=== PATIENT | female | born 1970 | race African-American/Black ===

== ENCOUNTER 2020-11-03 14:21 | Inpatient (IN) | payer MEDICAID ==
[~2020-11-03] VITALS: Ht 177.8 cm; Wt 196.0 kg
[~2020-11-03 14:21] MED LIST: ACET-3161 PO; FERR-63 PO; LABE300T3 PO; MULT-1116 PO
[2020-11-03] MEDS ORDERED: MORPHINE SULFATE 4 MG/ML CPJ (NOT FOR IM USE) IV STA ×2 (14:52→18:15)
[2020-11-03] MEDS ORDERED: ONDANSETRON HCL 4MG/2ML INJ IV STA ×2 (14:52→18:15)
[2020-11-03] MEDS ORDERED: SODIUM CHLORIDE 0.9% 1,000 ML IV ONE (15:00)
[2020-11-03 15:20] LABS: HEMATOCRIT. 37.1 % (36.0-48.0); HEMOGLOBIN. 12.2 g/dL (12.0-16.0); MEAN CORPUSCULAR HEMOGLOBIN 27.8 pg (28.0-32.0); MEAN CORPUSCULAR VOLUME 84.4 fL (81.0-99.0); MEAN PLATELET VOLUME 8.2 fl (7.4-10.4); PLATELET 399 x1000/uL (130-400); RED CELL DISTRIBUTION WIDTH 15.4 % (11.6-14.6)
[2020-11-03 15:27] LABS: CHLORIDE 106 mEq/L (98-107)
[2020-11-03] MEDS ORDERED: CLONIDINE 0.2MG TABLET PO ONE (15:30)
[2020-11-03 15:32] LABS: HCG SCREEN NEGATIVE
[2020-11-03] MEDS ORDERED: SODIUM CHLORIDE 0.9% 1000ML BAG (SEPSIS BOLUS) IV ONE (17:15)
[2020-11-03] MEDS ORDERED: VANCOMYCIN 1 G PREMIX 200 ML IV SCH (17:15)
[2020-11-03] MEDS ORDERED: PIPERACILLIN/TAZ 3.375G PREMIX 50 ML IV ONE (17:15)
[2020-11-03 17:17] LABS: PLATELET ESTIMATE NORMAL
[2020-11-03] MEDS ORDERED: HYDRALAZINE 20MG/ML VIAL IV ONE (18:15)
[2020-11-03] MEDS ORDERED: HALOPERIDOL LACTATE 5MG/ML VIAL IM ONE (21:15)
[2020-11-03] MEDS ORDERED: NITROGLYCERIN 50MG PREMIX 250 ML IV ONE (21:15)
[2020-11-03] MEDS ORDERED: MIDAZOLAM HCL 2 MG/2 ML VIAL IV ONE (21:15)
[2020-11-03] MEDS ORDERED: ACETAMINOPHEN 325MG TABLET PO ONE (21:30)
[2020-11-04 00:40] VITALS: BP 121/79
[2020-11-04 00:41] VITALS: BP 121/79
[2020-11-04] MEDS: SODIUM CHLORIDE 0.9% 1,000 ML IV SCH ×2 (01:32→11:58)
[2020-11-04] MEDS: KETOROLAC 30MG/ML VIAL IV PRN ×4 (01:32→23:05)
[2020-11-04] MEDS ORDERED: CEFTRIAXONE 1 G PREMIX 50 ML IV SCH (02:00)
[2020-11-04] MEDS: CEFTRIAXONE 1,000 MG in DEXTROSE 5% WATER 50 ML IV SCH (02:30)
[2020-11-04] MEDS: METRONIDAZOLE 500 MG PREMIX 100 ML IV SCH ×3 (03:28→21:16)
[2020-11-04 06:31] LABS: HEMATOCRIT. 33.1 % (36.0-48.0); HEMOGLOBIN. 10.7 g/dL (12.0-16.0); MEAN CORPUSCULAR HEMOGLOBIN 27.5 pg (28.0-32.0); MEAN CORPUSCULAR VOLUME 85.5 fL (81.0-99.0); MEAN PLATELET VOLUME 8.5 fl (7.4-10.4); PLATELET 361 x1000/uL (130-400); RED BLOOD CELL COUNT 3.88 mill/uL (4.2-5.4); RED CELL DISTRIBUTION WIDTH 15.3 % (11.6-14.6)
[2020-11-04 08:00] VITALS: BP 131/80
[2020-11-04] MEDS: ENOXAPARIN 40MG/0.4ML SYR SUBCUT SCH ×2 (08:50→21:16)
[2020-11-04] MEDS: ONDANSETRON HCL 4MG/2ML INJ IV PRN ×2 (10:43→23:05)
[2020-11-04 12:00] VITALS: BP 126/73
[2020-11-04] MEDS ORDERED: NALOXONE HCL 0.4MG/ML VIAL IV PRN (12:15)
[2020-11-04 13:43] LABS: PLATELET ESTIMATE NORMAL
[2020-11-04 16:00] VITALS: BP 134/83
[2020-11-04 20:00] VITALS: BP 121/82
[2020-11-05] VITALS: BP 145/82
[2020-11-05] MEDS: MORPHINE SULFATE 4 MG/ML CPJ (NOT FOR IM USE) IV PRN ×3 (03:29→21:03)
[2020-11-05] MEDS: SODIUM CHLORIDE 0.9% 1,000 ML IV SCH ×3 (03:35→17:12)
[2020-11-05 04:05] LABS: CLARITY URINE CLOUDY (CLEAR); COLOR URINE ORANGE (YELLOW); KETONES URINE 3+ (NEGATIVE); LEUKOCYTE ESTERASE URINE 1+ (NEGATIVE); NITRITE URINE POSITIVE (NEGATIVE); OCCULT BLOOD URINE NEGATIVE (NEGATIVE); PH URINE 5.5 (4.5-8.0); PROTEIN URINE 2+ (NEGATIVE); SPECIFIC GRAVITY URINE 1.036 (1.005-1.030)
[2020-11-05 05:02] VITALS: BP 180/103
[2020-11-05] MEDS: HYDRALAZINE 20MG/ML VIAL IV PRN ×2 (05:24→12:51)
[2020-11-05] MEDS: METRONIDAZOLE 500 MG PREMIX 100 ML IV SCH ×3 (05:25→20:47)
[2020-11-05 08:00] VITALS: BP 161/89
[2020-11-05] MEDS: CEFTRIAXONE 1,000 MG in DEXTROSE 5% WATER 50 ML IV SCH (08:56)
[2020-11-05] MEDS: ENOXAPARIN 40MG/0.4ML SYR SUBCUT SCH ×2 (08:56→20:47)
[2020-11-05 10:44] LABS: HEMATOCRIT. 33.1 % (36.0-48.0); HEMOGLOBIN. 10.7 g/dL (12.0-16.0); MEAN CORPUSCULAR HEMOGLOBIN 27.6 pg (28.0-32.0); MEAN CORPUSCULAR VOLUME 85.2 fL (81.0-99.0); MEAN PLATELET VOLUME 8.3 fl (7.4-10.4); PLATELET 359 x1000/uL (130-400); RED BLOOD CELL COUNT 3.89 mill/uL (4.2-5.4); RED CELL DISTRIBUTION WIDTH 15.8 % (11.6-14.6)
[2020-11-05 12:21] LABS: CHLORIDE 108 mEq/L (98-107)
[2020-11-05 12:45] VITALS: BP 183/107
[2020-11-05] MEDS: PANTOPRAZOLE SODIUM 40 MG/VIAL IV SCH (15:04)
[2020-11-05 16:00] VITALS: BP 154/87
[2020-11-05 20:00] VITALS: BP 173/87
[2020-11-06] VITALS: BP 191/111
[2020-11-06] MEDS: HYDRALAZINE 20MG/ML VIAL IV PRN ×3 (00:43→19:44)
[2020-11-06 04:00] VITALS: BP 147/85
[2020-11-06] MEDS: METRONIDAZOLE 500 MG PREMIX 100 ML IV SCH ×3 (05:00→21:04)
[2020-11-06] MEDS: SODIUM CHLORIDE 0.9% 1,000 ML IV SCH ×2 (05:00→13:09)
[2020-11-06 06:42] LABS: HEMATOCRIT. 34.8 % (36.0-48.0); HEMOGLOBIN. 11.3 g/dL (12.0-16.0); MEAN CORPUSCULAR HEMOGLOBIN 27.8 pg (28.0-32.0); MEAN CORPUSCULAR VOLUME 85.7 fL (81.0-99.0); MEAN PLATELET VOLUME 8.8 fl (7.4-10.4); PLATELET 374 x1000/uL (130-400); RED BLOOD CELL COUNT 4.07 mill/uL (4.2-5.4); RED CELL DISTRIBUTION WIDTH 16.2 % (11.6-14.6)
[2020-11-06 07:59] LABS: CHLORIDE 107 mEq/L (98-107)
[2020-11-06 08:00] VITALS: BP 164/90
[2020-11-06] MEDS: PANTOPRAZOLE SODIUM 40 MG/VIAL IV SCH (08:37)
[2020-11-06] MEDS: ENOXAPARIN 40MG/0.4ML SYR SUBCUT SCH ×2 (08:38→19:44)
[2020-11-06] MEDS: CEFTRIAXONE 1,000 MG in DEXTROSE 5% WATER 50 ML IV SCH (08:39)
[2020-11-06 12:00] VITALS: BP 171/90
[2020-11-06] MEDS ORDERED: POTASSIUM CHLORIDE INJ 40 MEQ in DEXT 5% WATER 250 ML IV NR (13:00)
[2020-11-06 16:00] VITALS: BP 149/90
[2020-11-06 17:50] LABS: PLATELET ESTIMATE NORMAL
[2020-11-06 20:00] VITALS: BP 201/119
[2020-11-06 21:55] LABS: PLATELET ESTIMATE NORMAL
[2020-11-07] VITALS: BP 199/109
[2020-11-07] MEDS: SODIUM CHLORIDE 0.9% 1,000 ML IV SCH ×3 (01:49→20:56)
[2020-11-07] MEDS: HYDRALAZINE 20MG/ML VIAL IV PRN (01:49)
[2020-11-07 04:00] VITALS: BP 199/114
[2020-11-07] MEDS: METRONIDAZOLE 500 MG PREMIX 100 ML IV SCH ×3 (05:06→21:59)
[2020-11-07] MEDS ORDERED: ENALAPRIL 2.5MG/2ML VIAL 2ML IV SCH ×2 (06:15→12:00)
[2020-11-07 06:23] LABS: CHLORIDE 108 mEq/L (98-107)
[2020-11-07 06:46] LABS: HEMATOCRIT. 34.3 % (36.0-48.0); HEMOGLOBIN. 11.2 g/dL (12.0-16.0); MEAN CORPUSCULAR HEMOGLOBIN 27.5 pg (28.0-32.0); MEAN CORPUSCULAR VOLUME 84.3 fL (81.0-99.0); MEAN PLATELET VOLUME 8.5 fl (7.4-10.4); PLATELET 406 x1000/uL (130-400); RED BLOOD CELL COUNT 4.07 mill/uL (4.2-5.4); RED CELL DISTRIBUTION WIDTH 16.3 % (11.6-14.6)
[2020-11-07] MEDS ORDERED: ENALAPRIL 1.25MG/ML VIAL 1ML IV SCH (07:00)
[2020-11-07 08:00] VITALS: BP 168/106
[2020-11-07] MEDS: CEFTRIAXONE 1,000 MG in DEXTROSE 5% WATER 50 ML IV SCH (08:49)
[2020-11-07] MEDS: ENOXAPARIN 40MG/0.4ML SYR SUBCUT SCH ×2 (08:49→20:56)
[2020-11-07] MEDS: PANTOPRAZOLE SODIUM 40 MG/VIAL IV SCH (08:49)
[2020-11-07] MEDS ORDERED: ENALAPRIL 1.25MG/ML VIAL 1ML IV PRN (11:45)
[2020-11-07 12:00] VITALS: BP 160/92
[2020-11-07] MEDS ORDERED: POTASSIUM CHLORIDE INJ 40 MEQ in DEXT 5% WATER 250 ML IV NR (13:00)
[2020-11-07 13:43] LABS: PLATELET ESTIMATE SLIGHTLY INCREASED
[2020-11-07 16:00] VITALS: BP 197/109
[2020-11-07 20:00] VITALS: BP 191/100
[2020-11-08] VITALS (7 sets, daily range): BP systolic 133–190; BP diastolic 81–110
[2020-11-08] MEDS: SODIUM CHLORIDE 0.9% 1,000 ML IV SCH ×2 (05:25→20:00)
[2020-11-08] MEDS: METRONIDAZOLE 500 MG PREMIX 100 ML IV SCH ×4 (05:25→22:11)
[2020-11-08] MEDS: ONDANSETRON HCL 4MG/2ML INJ IV PRN ×3 (05:38→22:15)
[2020-11-08 09:38] LABS: HEMATOCRIT. 33.8 % (36.0-48.0); HEMOGLOBIN. 11.1 g/dL (12.0-16.0); MEAN CORPUSCULAR HEMOGLOBIN 27.6 pg (28.0-32.0); MEAN CORPUSCULAR VOLUME 84.5 fL (81.0-99.0); MEAN PLATELET VOLUME 8.3 fl (7.4-10.4); PLATELET 386 x1000/uL (130-400); RED BLOOD CELL COUNT 4.01 mill/uL (4.2-5.4); RED CELL DISTRIBUTION WIDTH 16.2 % (11.6-14.6)
[2020-11-08 09:47] LABS: CHLORIDE 108 mEq/L (98-107)
[2020-11-08] MEDS: CEFTRIAXONE 1,000 MG in DEXTROSE 5% WATER 50 ML IV SCH (10:11)
[2020-11-08] MEDS: ENOXAPARIN 40MG/0.4ML SYR SUBCUT SCH ×2 (10:11→22:13)
[2020-11-08] MEDS: FAMOTIDINE 20MG/2ML VIAL IV SCH ×2 (10:11→22:11)
[2020-11-08] MEDS: HYDRALAZINE 20MG/ML VIAL IV PRN ×2 (13:08→23:24)
[2020-11-08] MEDS ORDERED: TRAMADOL 50MG TABLET PO PRN (14:00)
[2020-11-08] MEDS ORDERED: ACETAMINOPHEN 325MG TABLET PO PRN (14:00)
[2020-11-08] MEDS ORDERED: POTASSIUM CHLORIDE 20MEQ TABLET SR PO NR (14:00)
[2020-11-08 16:44] LABS: PLATELET ESTIMATE NORMAL
[2020-11-08] MEDS: AMLODIPINE 5MG TABLET PO SCH (17:46)
[2020-11-08] MEDS ORDERED: LOSA1TAB34 PO (18:46)
[2020-11-08] MEDS: CLONIDINE 0.1MG TABLET PO PRN (19:03)
[2020-11-09] VITALS: BP 161/101
[2020-11-09] MEDS: SODIUM CHLORIDE 0.9% 1,000 ML IV SCH ×2 (01:30→11:43)
[2020-11-09] MEDS: CLONIDINE 0.1MG TABLET PO PRN (03:46)
[2020-11-09 04:00] VITALS: BP 151/103
[2020-11-09 07:04] LABS: HEMATOCRIT. 34.6 % (36.0-48.0); HEMOGLOBIN. 11.2 g/dL (12.0-16.0); MEAN CORPUSCULAR HEMOGLOBIN 27.5 pg (28.0-32.0); MEAN CORPUSCULAR VOLUME 85.1 fL (81.0-99.0); MEAN PLATELET VOLUME 8.3 fl (7.4-10.4); PLATELET 442 x1000/uL (130-400); RED BLOOD CELL COUNT 4.07 mill/uL (4.2-5.4); RED CELL DISTRIBUTION WIDTH 15.9 % (11.6-14.6)
[2020-11-09 07:18] LABS: CHLORIDE 106 mEq/L (98-107)
[2020-11-09 08:00] VITALS: BP 160/105
[2020-11-09] MEDS: AMLODIPINE 5MG TABLET PO SCH ×2 (09:00→11:39)
[2020-11-09] MEDS: ENOXAPARIN 40MG/0.4ML SYR SUBCUT SCH (09:00)
[2020-11-09] MEDS ORDERED: HYDROCHLOROTHIAZIDE 12.5MG CAPSULE PO SCH (09:15)
[2020-11-09] MEDS ORDERED: LOSARTAN POTASSIUM 50 MG TABLET PO SCH (09:15)
[2020-11-09] MEDS ORDERED: POTASSIUM CHLORIDE 20MEQ TABLET SR PO NR (09:15)
[2020-11-09] MEDS: CEFTRIAXONE 1,000 MG in DEXTROSE 5% WATER 50 ML IV SCH (09:33)
[2020-11-09] MEDS: FAMOTIDINE 20MG/2ML VIAL IV SCH (09:34)
[2020-11-09 11:52] VITALS: BP 148/94
[2020-11-09 13:07] LABS: PLATELET ESTIMATE INCREASED
[2020-11-09 16:00] VITALS: BP 142/81
[2020-11-09] MEDS ORDERED: LEVO750T46 MT (17:25)
[2020-11-09] MEDS ORDERED: METR-167 MT (17:25)
[2020-11-09 17:29] VITALS: BP 142/81
== END 2020-11-09 18:48 | disposition home or self-care (01) | DRG 720 ==
LOC: ER 14:21 → 7EST 18:42 → ENRESERV 20:06 → CANRESERV 20:06 → ENRESERV 23:14
PROVIDERS: ADMIT Internal Medicine; ATTEND Internal Medicine
DX: A41.9 Sepsis, unspecified organism (principal); E43 Unspecified severe protein-calorie malnutrition; K57.20 Diverticulitis of large intestine with perforation and abscess without bleeding; Z68.44 Body mass index [BMI] 60.0-69.9, adult; D72.829 Elevated white blood cell count, unspecified; E66.01 Morbid (severe) obesity due to excess calories; Z20.822 Contact with and (suspected) exposure to COVID-19; I10 Essential (primary) hypertension; Z91.14 Patient's other noncompliance with medication regimen; Z98.891 History of uterine scar from previous surgery; Z79.1 Long term (current) use of non-steroidal anti-inflammatories (NSAID); Z79.899 Other long term (current) drug therapy
CPT/HCPCS: 36415; 71045; 74176; 80048; 80053; 81003; 83605; 84703; 85025; 87426; 93005; 99285; C1893; C9113; J0360; J0696; J1630; J1650; J1885; J2250; J2270; J2405; J2543; J3370; J3480; J3490; J7030; J7060

== ENCOUNTER 2024-03-11 20:30 | Inpatient (IN) | payer MEDICAID, MEDICARE ==
[~2024-03-11] VITALS: Ht 177.8 cm; Wt 194.1 kg
[~2024-03-11 20:30] MED LIST changes: -ACET-3161 PO; +AMLO5TAB88 PO; +CIPR500T5 MT; -FERR-63 PO; -LABE300T3 PO; +LOSA50TA41 PO; +METR-167 PO; -MULT-1116 PO
[2024-03-11 22:57] LABS: BASOPHILS % 1.2 % (0.0-2.0); EOSINOPHILS % 1.4 % (0.0-5.0); HEMOGLOBIN. 11.8 g/dL (12.0-16.0); LYMPHOCYTES % 24.6 % (20.0-50.0); MEAN CORPUSCULAR HEMOGLOBIN 26.6 pg (28.0-32.0); MEAN CORPUSCULAR HGB CONC 31.1 g/dL (31.0-37.0); MEAN CORPUSCULAR VOLUME 85.5 fL (81.0-99.0); MONOCYTES % 6.7 % (2.0-8.0); NEUTROPHILS % 66.1 % (40.0-76.0); PLATELET 278 x1000/uL (130-400); RED BLOOD CELL COUNT 4.45 mill/uL (4.2-5.4); RED CELL DISTRIBUTION WIDTH 16.2 % (11.6-14.6); WHITE BLOOD COUNT 6.9 x1000/uL (4.5-11.0)
[2024-03-11 23:08] LABS: PROTHROMBIN TIME 11.4 sec (9.6-11.0)
[2024-03-11] MEDS: KETOROLAC 30MG/ML VIAL IV ONE (23:09)
[2024-03-11 23:12] LABS: CHLORIDE 107 mEq/L (98-107); POTASSIUM 3.8 mEq/L (3.5-5.1); SODIUM 141 mEq/L (136-145)
[2024-03-11 23:13] LABS: CARBON DIOXIDE 29 mEq/L (21-32)
[2024-03-11] MEDS: LABETALOL 5MG/ML 4ML INJ IV ONE (23:15)
[2024-03-11 23:18] LABS: CREATININE 1.1 mg/dL (0.6-1.0); GLUCOSE 86 mg/dL (70-105); UREA NITROGEN BLOOD 11 mg/dL (9-23)
[2024-03-11 23:25] LABS: B-HCG QUANTITATIVE 2 mIU/mL (<3)
[2024-03-11] MEDS: HYDRALAZINE 20MG/ML VIAL IV ONE (23:47)
[2024-03-12] MEDS: GABAPENTIN 300MG CAPSULE PO ONE (00:26)
[2024-03-12] MEDS: MORPHINE SULFATE 4 MG/ML INJ (FOR IV/IM USE) IV ONE (01:00)
[2024-03-12] MEDS: LABETALOL 5MG/ML 4ML INJ IV ONE (01:42)
[2024-03-12 03:59] VITALS: BP 134/70; PULSE 75; RESP 18; TEMP 36.14
[2024-03-12] MEDS ORDERED: HYDROCODONE/ACETAMINOPHEN 5/325MG TABLET PO PRN (06:15)
[2024-03-12 08:29] VITALS: BP 147/83; PULSE 78; RESP 18; TEMP 36.114; O2SAT 98
[2024-03-12] MEDS: ENOXAPARIN 40MG/0.4ML SYR SUBCUT SCH (09:00)
[2024-03-12] MEDS ORDERED: NALOXONE HCL 0.4MG/ML VIAL IV PRN (09:45)
[2024-03-12 10:02] LABS: HEMATOCRIT. 37.4 % (36.0-48.0); HEMOGLOBIN. 11.7 g/dL (12.0-16.0); MEAN CORPUSCULAR HEMOGLOBIN 26.7 pg (28.0-32.0); MEAN CORPUSCULAR HGB CONC 31.3 g/dL (31.0-37.0); MEAN CORPUSCULAR VOLUME 85.3 fL (81.0-99.0); MEAN PLATELET VOLUME 9.2 fl (7.4-10.4); PLATELET 241 x1000/uL (130-400); RED BLOOD CELL COUNT 4.39 mill/uL (4.2-5.4); RED CELL DISTRIBUTION WIDTH 16.7 % (11.6-14.6); WHITE BLOOD COUNT 6.8 x1000/uL (4.5-11.0)
[2024-03-12 10:09] LABS: CHLORIDE 106 mEq/L (98-107); POTASSIUM 3.4 mEq/L (3.5-5.1); SODIUM 139 mEq/L (136-145)
[2024-03-12 10:10] LABS: CALCIUM 8.9 mg/dL (8.7-10.4); CARBON DIOXIDE 25 mEq/L (21-32)
[2024-03-12 10:15] LABS: CREATININE 0.9 mg/dL (0.6-1.0); GLUCOSE 125 mg/dL (70-105); UREA NITROGEN BLOOD 10 mg/dL (9-23)
[2024-03-12] MEDS: AMLODIPINE 10MG TABLET PO SCH (10:18)
[2024-03-12 11:31] VITALS: BP 135/71; PULSE 84; RESP 18; TEMP 36.50292; O2SAT 98
[2024-03-12] MEDS: POTASSIUM CHLORIDE 20MEQ/PACKET PO NR (13:39)
[2024-03-12 14:29] VITALS: BP 135/71; PULSE 84; TEMP 97.7; O2SAT 99
[2024-03-12 15:00] VITALS: BP 135/80; PULSE 81; RESP 18; TEMP 36.114; TEMP 36.11400; O2SAT 99
[2024-03-12 15:41] LABS: PLATELET ESTIMATE NORMAL
== END 2024-03-12 15:54 | disposition home or self-care (01) | DRG 199 ==
LOC: ER 20:30 → EDBEDREQ 22:27 → 8WST 03-12 00:18 → EDBEDREQTM 03-12 00:41 → EDBEDREQ 03-12 00:41 → EDBEDREQDT 03-12 00:41
PROVIDERS: ADMIT Internal Medicine; ATTEND Internal Medicine
DX: I16.0 Hypertensive urgency (principal); Z68.44 Body mass index [BMI] 60.0-69.9, adult; D25.9 Leiomyoma of uterus, unspecified; E66.01 Morbid (severe) obesity due to excess calories; N92.0 Excessive and frequent menstruation with regular cycle; I10 Essential (primary) hypertension; Z98.891 History of uterine scar from previous surgery
CPT/HCPCS: 36415; 76830; 76856; 80048; 84702; 85025; 86850; 86900; 93971; 99285; A4606; A4663; J0360; J1885; J2270; J3490